=== PATIENT | female | born 1945 | race Caucasian/White ===

== ENCOUNTER 2017-04-13 06:10 | Day surgery (SDC) | payer MEDICARE, BC ==
[~2017-04-13] VITALS: Ht 162.6 cm; Wt 62.6 kg
[~2017-04-13 06:10] MED LIST: CALCIUM 250+D T1 TAB PO; HYZAAR 50-12.51 TAB PO; PROLIA INJ 660 MG/M1 IJ; TRANSDERM-SCO1 PATCH TRANSDERM; VITAMIN D250000 UNIT PO; ZOFRAN4 MG PO
[2017-04-13 07:04] LABS: HEMATOCRIT 44.5 % (36.0-48.0); MCH 29.9 pg (26.0-34.0); MCHC 33.7 g/dL (31.0-37.0); MCV 88.8 fL (80.0-100.0); MEAN PLATELET VOLUME 11.3 fL (7.4-10.4); RBC 5.01 10x6/uL (4.00-5.40); RDW 13.2 % (11.5-14.5); WBC 5.8 10x3/uL (4.8-10.8)
[2017-04-13 07:08] LABS: CALC OSMOLALITY 286 mosm/kg (275-300); CALCIUM 9.2 mg/dL (8.5-10.1); CARBON DIOXIDE 30.4 mmol/L (21.0-32.0); CHLORIDE - SERUM 103 mmol/L (98-107); CREATININE - SERUM 0.8 mg/dL (0.6-1.3); GLUCOSE 111 mg/dL (74-106); POTASSIUM - SERUM 3.8 mmol/L (3.5-5.1); SODIUM 142 mmol/L (136-145); UREA NITROGEN 22 mg/dL (7-18); eGFR NON AFRICAN AMERICAN 75 mL/min (90-120)
[2017-04-13 08:06] VITALS: BP 133/70; Ht 162.6 cm; Wt 62.6 kg
--- NOTE | 2017-04-13 09:11 | NUR ---
0848 PROCEDURE CANCELLED MD NÚÑEZ EXPLAINED TO PATIENT THIS, AND TOLD PATIENT MD WILL NOTIFY HER OF RESCHEDULE TIME. VERBALLY UNDERSTANDS.0900 TO HOME AMBULATED.
== END 2017-04-13 09:00 | disposition home or self-care (01) ==
LOC: D.OPS 06:10 → D.PAN 08:00 → D.OPS 08:10
PROVIDERS: Anesthesiology
DX: K63.5 Polyp of colon (principal); Z01.810 Encounter for preprocedural cardiovascular examination; Z01.811 Encounter for preprocedural respiratory examination; Z01.812 Encounter for preprocedural laboratory examination; Z53.9 Procedure and treatment not carried out, unspecified reason

== ENCOUNTER 2017-05-16 08:49 | Day surgery (SDC) | payer MEDICARE, BC ==
[~2017-05-16] VITALS: Ht 162.6 cm; Wt 62.6 kg
--- NOTE | ~2017-05-16 | HP ---
PATIENT: VISH CAIN MEDICAL RECORD: [id number] ACCOUNT: [id number] LOCATION:[facility] : 49 ADMISSION DATE: 05/16/17 HISTORY AND PHYSICAL EXAMINATION CHIEF COMPLAINT: Colon polyps. HISTORY OF PRESENT ILLNESS: The patient had recurrent ascending colon polyp. There was a recurrent serrated adenoma. It was on a fold. I was able to retroflexed in the cecum previously and see the polyp. I am going to plan for colonoscopy and argon plasma coagulation therapy to any recurrent polyp. The risks, possible complications and alternatives to procedure were explained to the patient. She elects to proceed. PAST MEDICAL AND SURGICAL HISTORY: Asthma, hypertension, history of hysterectomy, history of left mastectomy, history of ovarian wedge resection. SOCIAL HISTORY: Nonsmoker. HOME MEDICATIONS: Last list of home medicines I have for the patient includes Hyzaar, vitamin D2, vitamin D3 as well as Scopolamine patch which is being used as the patient is susceptible postoperative nausea and vomiting. ALLERGIES: No known drug allergies. REVIEW OF SYSTEMS: Negative for CVA or seizures. Negative for diabetes or thyroid problems. PHYSICAL EXAMINATION: GENERAL: The patient does not appear acutely ill. Does not appear chronically ill. VITAL SIGNS: Reviewed. HEAD: External ears appear normal. EYES: Extraocular movements are intact. NECK: Trachea is midline. CHEST: No intercostal retractions. PULMONARY: Nonlabored, no stridor. ABDOMEN: Nontender. IMPRESSION: History of complex colon polyps to the right colon including a recurrent serrated adenoma. PLAN: Will be colonoscopy and polypectomy with the argon plasma long wall shear operator. TRANSINT:[id number] Voice Confirmation ID: [id number] DOCUMENT ID: [id number] HISTORY AND PHYSICAL [id number] VISH CAIN ROBERT MD CC: [id number] DICTATION DATE: 05/16/17 1220 BOOK CUTTER: 05/16/17 1254 [facility] [address] [place] [address]
--- NOTE | ~2017-05-16 | OP ---
PATIENT NAME: VISH CAIN MEDICAL RECORD: [id number] :49 LOCATION:[facility] ADMISSION DATE: SURGEON: NAT ODOM MD DATE OF OPERATION: 05/16/2017 PREOPERATIVE DIAGNOSIS: History of recurrent serrated adenoma of the ascending colon. POSTOPERATIVE DIAGNOSES: 1. History of recurrent serrated adenoma of the ascending with no regrowth of the polyp. 2. There was a de trista 9-mm polyp. This was sessile and was located at 1 meter. PROCEDURES: 1. Total colonoscopy to cecum. 2. Hot biopsy forceps polypectomy times 1. SURGEON: Nat Odom MD RENAL NURSE: None. BLOOD LOSS: Minimal. ANESTHESIA: General. COMPLICATIONS: None. The risks, possible complications and alternatives to procedure were explained to the patient. She elects to proceed. OPERATIVE COURSE: The patient was conveyed to the operating room electively on 05/16/2017. General anesthesia was induced by anesthesia staff. The patient was placed in the Almodovar position. A digital rectal examination was performed. A colonoscope was inserted through the anus. It was easily advanced to the cecum. The prep was excellent. I slowly withdrew the endoscope. I irrigated and aspirated extensively. I dragged the folds. The pullback was greater than a 14-minute pullback. I noted no regrowth of the ascending colon polyp. There was a new polyp at 1 meter that was removed in its entirety utilizing a hot biopsy forceps polypectomy technique. I continued to withdraw the endoscope. A retroflexed view was obtained in the rectum. I then unretroflexed the scope and removed it under direct vision. PLAN: I plan to see the patient in my office in 2-3 weeks. At that time, I will turn her endoscopic care back over to Dr. Manley for surveillance colonoscopies in the future. TRANSINT:[id number] Voice Confirmation ID: [id number] DOCUMENT ID: [id number] OPERATIVE REPORT [id number] VISH CAIN NAT ODOM MD CC: SARAH MANLEY MD and LAURA HUDDLESTON MD [id number] DICTATION DATE: 05/16/17 1226 BARREL STAVE INSPECTOR: 05/16/17 1815 [facility] 05/16/17 [place] [address]
[2017-05-16 09:17] VITALS: Ht 162.6 cm; Wt 62.6 kg
[2017-05-16 10:23] LABS: HEMATOCRIT 43.3 % (36.0-48.0); HEMOGLOBIN 14.6 g/dL (12-16); MCHC 33.7 g/dL (31.0-37.0); MCV 89.1 fL (80.0-100.0); MEAN PLATELET VOLUME 11.5 fL (7.4-10.4); RBC 4.86 10x6/uL (4.00-5.40); RDW 13.2 % (11.5-14.5)
[2017-05-16 10:36] LABS: CALC OSMOLALITY 280 mosm/kg (275-300); CALCIUM 8.9 mg/dL (8.5-10.1); CARBON DIOXIDE 24.2 mmol/L (21.0-32.0); CHLORIDE - SERUM 104 mmol/L (98-107); CREATININE - SERUM 0.6 mg/dL (0.6-1.3); GLUCOSE 80 mg/dL (74-106); POTASSIUM - SERUM 3.9 mmol/L (3.5-5.1); SODIUM 141 mmol/L (136-145); UREA NITROGEN 15 mg/dL (7-18); eGFR NON AFRICAN AMERICAN > 90 mL/min (90-120)
== END 2017-05-16 13:47 | disposition home or self-care (01) ==
LOC: D.OPS 08:49 → D.PAN 09:15 → D.OPS 11:15 → D.PAN 11:15 → D.OPS 13:47
PROVIDERS: Anesthesiology
DX: K63.5 Polyp of colon (principal); I10 Essential (primary) hypertension; J45.909 Unspecified asthma, uncomplicated; Z01.812 Encounter for preprocedural laboratory examination